=== PATIENT | male | born 1960 | race Two or more races ===

== ENCOUNTER 2019-05-24 23:35 | Emergency (ER) | payer SELFPAY ==
[~2019-05-24] VITALS: Ht 172.7 cm; Wt 99.8 kg
--- NOTE | 2019-05-24 23:40 | NUR ---
"[id number] FOUND SLEEPING IN SIDEWALK, NO MED COMPLAINTS; POSSIBLE ETOH SMALL LACERATION ON FOREHEAD; YH=010" PT VERBALLY RESPONSIVE, PT ON MONITOR, VSS ,NAD NTOED, PENDINGM EVAL
--- NOTE | 2019-05-24 23:53 | NUR ---
BROUGHT BY RADIOLOGY TO CT
[2019-05-25] MEDS ORDERED: IV NS 0.9% 1,000 ML BAG IV ONE
--- NOTE | 2019-05-25 00:07 | NUR ---
PT RETURNED FROM CT
--- NOTE | 2019-05-25 08:38 | NUR ---
Awake in NO acute distress. Ambulatory even/gait steady Ate 100%breakfast Patient discharged to home in stable condition. Written and verbal after care instructions given. Patient verbalizes understanding of instruction.
[2019-05-25 08:41] VITALS: BP 105/55
== END 2019-05-25 08:43 | disposition home or self-care (01) ==
LOC: ER 23:39
DX: S00.31XA Abrasion of nose, initial encounter (principal); S09.8XXA Other specified injuries of head, initial encounter; F10.129 Alcohol abuse with intoxication, unspecified; I10 Essential (primary) hypertension; E11.9 Type 2 diabetes mellitus without complications; W19.XXXA Unspecified fall, initial encounter; Y93.89 Activity, other specified; Y92.89 Other specified places as the place of occurrence of the external cause; Y99.8 Other external cause status; Y90.9 Presence of alcohol in blood, level not specified
CPT/HCPCS: 70450-TC; 70486-TC; 72125-TC; 82962-TC; J7030